=== PATIENT | female | born 1975 | race Caucasian/White ===

== ENCOUNTER 2023-04-09 12:47 | Outpatient (OUT) | payer MEDICAID, SELFPAY ==
--- NOTE | 2023-04-09 | MM_ITS ---
Patient Name MANUEL COLLINS MR# Age Sex Date Time [id number] F 04/09/2023 12:56 At the Request Of DR BASHIR LORA RADIOLOGY REPORT PROCEDURE: MM TOMOSYNTHESIS SCREENING BI COMPARISON: MG MAMM SCREEN 3D GUADALUPE CAD, 04/08/2022. MG MAMM SCREEN GUADALUPE W CAD, 04/17/2020. INDICATIONS: Screening for malignant neoplasm Calculator Name NCI Breast Cancer Risk Assessment Tool 5 Year Breast Cancer Risk 0.70% Lifetime Breast Cancer Risk 7.80% Personal Breast Cancer No Personal Ovarian Cancer No Treatments None Family Cancers Grandmother-maternal with breast cancer at age 80. LOCATION: [facility] BREAST COMPOSITION: Scattered areas fibroglandular density. FINDINGS: DIAGNOSTIC CATEGORY 1--NEGATIVE. RIGHT BREAST: No significant suspicious finding. No significant change has occurred. LEFT BREAST: No significant suspicious finding. No significant change has occurred. RECOMMENDATIONS: ROUTINE MAMMOGRAM AND CLINICAL EVALUATION IN 12 MONTHS. PLEASE NOTE: A NORMAL MAMMOGRAM DOES NOT EXCLUDE THE POSSIBILITY OF BREAST CANCER. A CLINICALLY SUSPICIOUS PALPABLE LUMP SHOULD BE BIOPSIED. Dictated by: Nasir Albarado M.D. on 04/09/2023 at 14:28 Approved by: Nasir Albarado M.D. on 04/09/2023 at 14:32
--- OUTSIDE RECORDS SUMMARY | 2023-05-20 14:26 | XMS_ITS | CCD ---
Author Name Unknown Address [address] [place] [address] Organization [facility] Care Team Providers Care Vending Route Driver Name Role Phone DR BASHIR LORA Admitting Unavailable GENO, DR BASHIR Colvin Attending Unavailable WEST, DR KAVITA Drew Consulting Unavailable GENO, DR BASHIR Colvin Consulting Unavailable Problems Problem Classification Problem Date Documented Da te Episodic/Chronic Other screening for suspected conditions (not mental disorders or infectious disease) (4 sources) Encounter for screening mammogram for malignant neoplasm of breast; Translations: [ENC SCR MAMMO MALIG NEOPLASM BREAST] Onset: 04-08-2022 Episodic Residual codes; unclassified (1 source) Family history of malignant neoplasm of breast; Translations: [FAMILY HX MALIG NEOPLASM OF BREAST] Onset: 04-13-2022 Episodic Results Test Name Value Interpretation Reference Range Facil ity MG MAMM SCREEN 3D GUADALUPE CADon 04-08-2022 MG MAMM SCREEN 3D GUADALUPE CAD Patient: MANUEL COLLINS. Exam Date: 04/08/2022 : 1975 Gender:F Ordering : DR BASHIR LORA Admission #: [id number] Family : [facility] Order #: [id number] CLICK HERE TO VIEW EXAM RADIOLOGY REPORT PROCEDURE: MAMMOGRAM SCREENING 3D BILATERAL CAD COMPARISON: MG MAMM SCREEN GUADALUPE W CAD, 04/17/2020. INDICATIONS: Screening mammography Calculator Name NCI Breast Cancer Risk Assessment Tool 5 Year Breast Cancer Risk 0.70% Lifetime Breast Cancer Risk 7.90% Personal Breast Cancer No Personal Ovarian Cancer No Treatments None Family Cancers Grandmother-maternal with breast cancer at age 80. LOCATION: [facility] BREAST COMPOSITION: Scattered areas fibroglandular density. FINDINGS: DIAGNOSTIC CATEGORY 2--BENIGN FINDING. NO CHANGE FROM COMPARISON. Scattered benign-appearing nodules are present. Scattered benign-appearing calcifications are present. Scattered benign-appearing lymph nodes are present. RIGHT BREAST: No significant suspicious finding. LEFT BREAST: No significant suspicious finding. RECOMMENDATIONS: ROUTINE MAMMOGRAM AND CLINICAL EVALUATION IN 12 MONTHS. PLEASE NOTE: A NORMAL MAMMOGRAM DOES NOT EXCLUDE THE POSSIBILITY OF BREAST CANCER. A CLINICALLY SUSPICIOUS PALPABLE LUMP SHOULD BE BIOPSIED. Dictated by: Kavita Burgos MD on 04/08/2022 at 12:11 Approved by: Kavita Burgos MD on 04/08/2022 at 12:12 Normal [facility] Encounters Encounter Date Encounter Type Care Provider Facility Start: 04-08-2022 End: 04-09-[address] BASHIR LORA Facility: Payers Date Payer Category Payer Unknown [id number] 1958 Unknown Summary Purpose Family History No Family History Records Found Advance Directives No Advanced Directives Records Found Additional Source Comments INFORMATION SOURCE (unrecogn ized section and content) DATE CREATED AUTHOR 04/13/2022 The [facility] FOR RECORDS PERTAINING TO PATIENTS WHO ARE OR HAVE BEEN ENROLLED IN A CHEMICAL DEPENDENCY/SUBSTANCEABUSE PROGRAM, SOME INFORMATION MAY BE OMITTED. This clinical summary was aggregated from multiple sources. Caution should be exercised in using it in the provision of clinical care. This summary normalizes information from multiple sources, and as a consequence, information in this document may materially change the coding, format and clinical context of patient data. In addition, data may be omitted in some cases. CLINICAL DECISIONS SHOULD BE BASED ON THE PRIMARY CLINICAL RECORDS. [facility] [employer] provides no warranty or guarantee of the accuracy or completeness of information in this document.
== END 2023-04-09 12:48 | disposition home or self-care (01) ==
PROVIDERS: PCP Nurse Practitioner Family; Visit Provider Nurse Practitioner Family
DX: Z12.31 Encounter for screening mammogram for malignant neoplasm of breast (principal); Z80.3 Family history of malignant neoplasm of breast
CPT/HCPCS: 77063; 77067

== ENCOUNTER 2024-05-12 07:54 | Outpatient (OUT) | payer BC, SELFPAY ==
--- NOTE | 2024-05-12 07:56 | MM_ITS ---
Patient Name: MANUEL COLLINS MR#: [id number] : 1975 Exam Date: 05/12/2024 Ordering Doctor: DR BASHIR LORA RADIOLOGY REPORT PROCEDURE: MM TOMOSYNTHESIS SCREENING BI COMPARISON: MG MAMM SCREEN 3D GUADALUPE CAD, 04/08/2022. MM TOMOSYNTHESIS SCREENING BI, 04/09/2023. INDICATIONS: Screening Calculator Name NCI Breast Cancer Risk Assessment Tool 5 Year Breast Cancer Risk 0.70% Lifetime Breast Cancer Risk 7.70% Personal Breast Cancer No Personal Ovarian Cancer No Treatments None Family Cancers Grandmother-maternal with breast cancer at age 80. LOCATION: [facility] BREAST COMPOSITION: There are scattered areas of fibroglandular density. FINDINGS: DIAGNOSTIC CATEGORY 1--NEGATIVE. NO CHANGE FROM COMPARISON ASSESSMENT. Scattered benign-appearing calcifications are present. Scattered benign-appearing lymph nodes are present. RIGHT BREAST: No significant suspicious finding. LEFT BREAST: No significant suspicious finding. RECOMMENDATIONS: ROUTINE MAMMOGRAM AND CLINICAL EVALUATION IN 12 MONTHS. PLEASE NOTE: A NORMAL MAMMOGRAM DOES NOT EXCLUDE THE POSSIBILITY OF BREAST CANCER. A CLINICALLY SUSPICIOUS PALPABLE LUMP SHOULD BE BIOPSIED. Dictated by: Mansoor Burgos MD on 05/12/2024 at 09:14 Approved by: Mansoor Burgos MD on 05/12/2024 at 09:15
--- OUTSIDE RECORDS SUMMARY | 2024-05-12 07:57 | XMS_ITS | CCD ---
Author Organization [facility] Care Team Providers Care Supervisor Stage Carpentry Name Role Phone DR BASHIR LORA Admitting [...] Ordering : DR BASHIR LORA Admission #: [id number] Family : [facility] Order #: [id number] CLICK HERE TO VIEW EXAM RADIOLOGY REPORT [...] breast cancer at age 81. LOCATION: [facility] BREAST COMPOSITION: Scattered areas fibroglandular density. FINDINGS: [...] Burgos MD on 04/08/2022 at 12:12 Normal [facility] Encounters Encounter Date Encounter Type Care Provider Facility Start: 04-08-2022 End: 04-09-[address] BASHIR LORA Facility:[facility]1 Payers Date Payer Category Payer Unknown [id number] 1958 Unknown Summary Purpose Family History No Family History Records Found Advance Directives No Advanced Directives Records Found Additional Source Comments INFORMATION SOURCE (unrecogn ized section and content) DATE CREATED AUTHOR 04/13/2022 The [facility] FOR RECORDS PERTAINING TO PATIENTS WHO ARE [...] BE BASED ON THE PRIMARY CLINICAL RECORDS. [employer] provides no warranty or guarantee of the accuracy or completeness of information in this document.
== END 2024-05-12 07:55 | disposition home or self-care (01) ==
LOC: MAMMO 07:54
PROVIDERS: PCP Nurse Practitioner Family; Visit Provider Nurse Practitioner Family
DX: Z12.31 Encounter for screening mammogram for malignant neoplasm of breast (principal); Z80.3 Family history of malignant neoplasm of breast
CPT/HCPCS: 77063; 77067

== ENCOUNTER 2025-05-13 07:52 | Outpatient (OUT) | payer OTHER, BC, SELFPAY ==
--- OUTSIDE RECORDS SUMMARY | 2025-05-13 07:53 | XMS_ITS | CCD ---
Author Organization [facility] Care Team Providers Care Hand Coke Drawer Name Role Phone DR BASHIR LORA Admitting Unavailable DR BASHIR LORA Attending Unavailable CLAUDETTE, DR KAVITA Drew Consulting Unavailable DR BASHIR LORA Consulting Unavailable Problems Problem ClassificationProblemDateDocumented DateEpisodic/ChronicOther screening for suspected conditions (not mental disorders or infectious disease) (4 sources)Encounter for screening mammogram for malignant neoplasm of breast; Translations: [ENC SCR MAMMO MALIG NEOPLASM BREAST]Onset: 12-21-1497Mwqaomaa Residual codes; unclassified (1 source)Family history of malignant neoplasm of breast; Translations: [FAMILY HX MALIG NEOPLASM OF BREAST]Onset: [id number] Results Test NameValueInterpretationReference RangeFacilityMG MAMM SCREEN 3D GUADALUPE CADon [id number] MAMM SCREEN 3D [place]AD[place]UPE CADPatient: MANUEL COLLINS. Exam Date: 04/08/2022 : 1975 Gender:F Ordering : DR BASHIR LORA Admission #: [id number] Family : [facility] Order #: [id number] CLICK HERE TO VIEW EXAM RADIOLOGY REPORT [...] breast cancer at age 81. LOCATION: [facility] BREAST COMPOSITION: Scattered areas fibroglandular density. [...] by: Kavita Burgos MD on 04/08/2022 at 12:12[facility] Encounters Encounter DateEncounter TypeCare ProviderFacilityStart: 04-08-2022 End: [id number] BASHIR Vinicius GENOFacility:H1 Payers DatePayer CategoryPayerPolicy [id number] Summary Purpose Family History No Family History Records Found Advance Directives No Advanced Directives Records Found Additional Source Comments INFORMATION SOURCE (unrecogn ized section and content) DATE CREATED AUTHOR 04/13/[address] [facility] FOR RECORDS PERTAINING TO PATIENTS WHO ARE [...] BE BASED ON THE PRIMARY CLINICAL RECORDS. [employer] provides no warranty or guarantee of the accuracy or completeness of information in this document.
--- NOTE | 2025-05-13 08:20 | MM_ITS ---
Patient Name: MANUEL COLLINS MR#: [id number] : 1975 Exam Date: 05/13/2025 Ordering Doctor: DR BASHIR LORA RADIOLOGY REPORT PROCEDURE: MM TOMOSYNTHESIS SCREENING BI COMPARISON: MM TOMOSYNTHESIS SCREENING BI, 05/12/2024. MM TOMOSYNTHESIS SCREENING BI, 04/09/2023. MG MAMM SCREEN 3D GUADALUPE CAD, 04/08/2022. MG MAMM SCREEN GUADALUPE W CAD, 04/17/2020. INDICATIONS: Screening Calculator Name NCI Breast Cancer Risk Assessment Tool 5 Year Breast Cancer Risk 0.70% Lifetime Breast Cancer Risk 7.60% Personal Breast Cancer No Personal Ovarian Cancer No Treatments None Family Cancers Grandmother-maternal with breast cancer at age 80. LOCATION: The [facility] BREAST COMPOSITION: There are scattered areas of fibroglandular density. FINDINGS: RIGHT BREAST: No significant suspicious finding. LEFT BREAST: No significant suspicious finding. There is a similar focal asymmetry . DIAGNOSTIC CATEGORY 2--BENIGN FINDING. NO CHANGE FROM COMPARISON. RECOMMENDATIONS: ROUTINE MAMMOGRAM AND CLINICAL EVALUATION IN 12 MONTHS. Dictated by: Brennon Michael MD on 05/13/2025 at 13:19 Approved by: Brennon Michael MD on 05/13/2025 at 13:21
== END 2025-05-13 07:53 | disposition home or self-care (01) ==
LOC: MAMMO 07:52
PROVIDERS: PCP Nurse Practitioner Family; Visit Provider Nurse Practitioner Family
DX: Z12.31 Encounter for screening mammogram for malignant neoplasm of breast (principal); Z80.3 Family history of malignant neoplasm of breast
CPT/HCPCS: 77063; 77067